=== PATIENT | male | born 1980 | race Caucasian/White ===

== ENCOUNTER 2017-09-12 13:35 | Emergency (ER) | payer OTHER ==
[2017-09-12] MEDS ORDERED: KETAMINE HCL INJ 500 MG/10 ML VIAL ONE (14:07)
[2017-09-12] MEDS ORDERED: DIAZEPAM INJ 10 MG/2 ML DISP.SYRIN IV ONE (14:11)
[2017-09-12] MEDS: NORMAL SALINE 1000 ML 1,000 ML IV PRN ×2 (14:17→15:02)
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
[2017-09-12 14:49] LABS: ABSOLUTE LYMPHOCYTES (AUTO) 1.1 10^3/uL (0.5-4.7); ABSOLUTE MONOCYTES (AUTO) 0.5 10^3/uL (0.1-1.4); ABSOLUTE NEUT (AUTO) 3.4 10^3/uL (1.7-8.2); BASOPHILS % (AUTO) 0.9 % (0-2); EOSINOPHILS % (AUTO) 0.4 % (0-6); HEMATOCRIT 40.3 % (37.9-51.0); HEMOGLOBIN 13.7 g/dL (13.5-17.0); MEAN CORPUSCULAR HEMOGLOBIN 31.4 pg (27.0-33.4); MEAN CORPUSCULAR HGB CONC 33.9 g/dL (32.0-36.0); MEAN CORPUSCULAR VOLUME 93 fl (80-97); MONOCYTES % (AUTO) 10.1 % (3-13); PLATELET COUNT 256 10^3/uL (150-450); RED BLOOD COUNT 4.36 10^6/uL (4.35-5.55); RED CELL DISTRIBUTION WIDTH 13.2 % (11.5-14.0); SEGMENTED NEUTROPHILS % (AUTO) 66.6 % (42-78); TOTAL CELLS COUNTED % (AUTO) 100 %; WHITE BLOOD COUNT 5.1 10^3/uL (4.0-10.5)
[2017-09-12 14:58] LABS: ALANINE AMINOTRANSFERASE 27 U/L (21-72); ALBUMIN 4.2 g/dL (3.5-5.0); ALKALINE PHOSPHATASE 70 U/L (38-126); ANION GAP 15 (5-19); ASPARTATE AMINO TRANSFERASE 19 U/L (17-59); BILIRUBIN,DIRECT 0.2 mg/dL (0.0-0.4); BILIRUBIN,TOTAL 0.9 mg/dL (0.2-1.3); BLOOD UREA NITROGEN 16 mg/dL (7-20); CALCIUM 9.4 mg/dL (8.4-10.2); CARBON DIOXIDE 22 mmol/L (22-30); CHLORIDE 98 mmol/L (98-107); CREATINE KINASE 231 U/L (55-170); POTASSIUM 4.7 mmol/L (3.6-5.0); SODIUM 135.2 mmol/L (137-145); TOTAL PROTEIN 6.1 g/dL (6.3-8.2)
[2017-09-12 14:59] LABS: ACETAMINOPHEN < 10 ug/mL (10-30); ALCOHOL < 10 mg/dL (NONE DETECTED); SALICYLATE < 1.0 mg/dL (2.0-20.0)
[2017-09-12 15:05] LABS: GLUCOSE 463 mg/dL (75-110)
--- NOTE | 2017-09-12 15:10 | EKG REPORT ---
SEVERITY:- BORDERLINE ECG - SINUS TACHYCARDIA PROBABLE LEFT ATRIAL ABNORMALITY : Confirmed by: Milan Lutz MD 12-Sep-2017 15:09:42
[2017-09-12 16:09] LABS: VENOUS BLOOD BASE EXCESS -1.8 mmol/L; VENOUS BLOOD HCO3 23.1 mmol/L (20-32); VENOUS BLOOD PCO2 39.9 mmHg (35-63); VENOUS BLOOD PH 7.38 (7.30-7.42)
[2017-09-12] MEDS ORDERED: ZIPRASIDONE MESYLATE INJ/PF 20 MG SDV IM ONE (16:14)
[2017-09-12 17:46] LABS: APPEARANCE,URINE CLEAR; BILIRUBIN,URINE NEGATIVE (NEGATIVE); COLOR,URINE YELLOW; GLUCOSE, URINE >=500 mg/dL (NEGATIVE); KETONES,URINE 20 mg/dL (NEGATIVE); LEUKOCYTE ESTERASE,URINE NEGATIVE (NEGATIVE); NITRITE,URINE NEGATIVE (NEGATIVE); PROTEIN,URINE NEGATIVE (NEGATIVE); URINE SPECIFIC GRAVITY 1.025
[2017-09-12 18:01] LABS: URINE AMPHETAMINES SCREEN UNCONFIRMED POSITIVE; URINE BARBITURATES SCREEN NEGATIVE; URINE BENZODIAZEPINES SCREEN UNCONFIRMED POSITIVE; URINE COCAINE SCREEN NEGATIVE; URINE MARIJUANA (THC) SCREEN NEGATIVE; URINE METHADONE SCREEN NEGATIVE; URINE PHENCYCLIDINE SCREEN NEGATIVE
[2017-09-12] MEDS ORDERED: DIAZEPAM INJ 10 MG/2 ML DISP.SYRIN IM PRN (22:25)
[2017-09-12] MEDS ORDERED: CETIRIZINE 10 MG TABLET PO ONE (22:53)
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
--- NOTE | 2017-09-13 09:19 | ER Document Report ---
Doctor's Note Notes: 09/13/17 09:18 Patient was seen and examined during psychiatric rounds this morning. Yesterday patient was acting erratic and disclosing paranoid delusions revolving around [place] and the missile launches upon arrival to [facility] ED. Originally patient refused to provide medical staff urine for urinalysis because the JEFF and classification issues. During evaluation patient did not present as under psychosis and only mentioned [place] towards the end of evaluation explaining possible impact areas are where he was actually deployed. His glucose was managed last night and improved significantly from 400 to 200. 09/13/17 10:27 After discussion with patient this morning, he feels and looks absolutely different. Patient is very cooperative, patient is very calm and regretful. Patient is very sorry about the anxiety reaction that he had yesterday. Patient would like to follow-up with his outpatient primary care provider as well as he is in treatment psychiatrist. Patient is willing to go back home and to apologize to his about anxiety reaction as well as to his children. Patient is cooperative, denies any homicidal or whole or suicidal ideations. Will get in contact with his and make sure that she is okay with him going home in the improved mental state. 09/13/17 11:51 Behavioral health were able to contact his . She is aware the patient is coming back. It also appears that they are having a civil dispute that has been going on for multiple months. Patient did not make any threats to kill his or his children yesterday and denies them today as well and does not have any future plans for them as well. Patient denies any suicidal homicidal ideations. Patient is very cooperative and does not appear to be manipulative. Patient will see his psychiatrist early next week.
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
[2017-09-13 12:07] VITALS: BP 136/78
== END 2017-09-13 12:06 | disposition home or self-care (01) ==
LOC: ER 13:35
DX: F41.9 Anxiety disorder, unspecified (principal); F91.9 Conduct disorder, unspecified; E10.65 Type 1 diabetes mellitus with hyperglycemia; Z96.41 Presence of insulin pump (external) (internal); Z79.4 Long term (current) use of insulin; Z88.2 Allergy status to sulfonamides; Z60.9 Problem related to social environment, unspecified
CPT/HCPCS: 93005; 99285; 96372; 96361; 96374; 36415; 82962; 80307 ×4; 82550; 85025; 80053; 81001; 82803; 93010; J3360; J3486; J7030

== ENCOUNTER 2017-09-25 20:55 | Emergency (ER) | payer OTHER ==
[2017-09-25] MEDS ORDERED: ACETAMINOPHEN 325 MG TABLET PO ONE (21:05)
[2017-09-25 21:15] VITALS: BP 125/90
[2017-09-25] MEDS ORDERED: CARISOPRODOL 350 MG TABLET PO ONE (22:04)
--- NOTE | 2017-09-25 22:09 | ER Document Report ---
ED Extremity Problem, Upper - General Mode of Arrival: Medic Information source: Patient TRAVEL OUTSIDE OF THE U.S. IN LAST 30 DAYS: No <ANGELITA DOYLE - Last Filed: 09/25/17 23:21> <DARNELL VASQUEZ - Last Filed: 09/26/17 01:02> - General Chief Complaint: Shoulder Pain Stated Complaint: SHOULDER PAIN Time Seen by Provider: 09/25/17 22:04 Notes: 37 y.o male with a PMHx of fusion to C4-C6 presents to the ED via EMS with intermittent RT shoulder pain for the past 2-3 weeks. Pt reports that today he was lying flat on his back and used his arms to stand up very fast and was "immediately on the ground in pain" to his arm. Pt reports tingling to his arm and pain radiating to elbow and to his 4th and 5th fingers. 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 He reports the pain changes with the position of his neck. He reports taking about 600mg of Ibuprofen after calling EMS around 1430 this afternoon and is without relief. (ANGELITA DOYLE) - Related Data Allergies/Adverse Reactions: Sulfa (Sulfonamide Antibiotics) Allergy (Verified 09/25/17 20:58) Past Medical History - General Information source: Patient - Social History Family History: Reviewed & Not Pertinent - Past Medical History Cardiac Medical History: Denies: Hx Coronary Artery Disease, Hx Heart Attack, Hx Hypertension Pulmonary Medical History: Denies: Hx Asthma, Hx Bronchitis, Hx COPD, Hx Pneumonia Neurological Medical History: Denies: Hx Cerebrovascular Accident, Hx Seizures Endocrine Medical History: Reports: Hx Diabetes Mellitus Type 1, Hx Diabetes Mellitus Type 2 Renal/ Medical History: Denies: Hx Peritoneal Dialysis GI Medical History: Denies: Hx Gastritis, Hx Gastroesophageal Reflux Disease Musculoskeltal Medical History: Denies Hx Arthritis Psychiatric Medical History: Reports: Hx Anxiety, Hx Depression, Hx Post Traumatic Stress Disorder Past Surgical History: Reports: Hx Orthopedic Surgery - Disc fusion. - Immunizations Hx Diphtheria, Pertussis, Tetanus Vaccination: Yes <ANGELITA DOYLE - Last Filed: 09/25/17 23:21> - General Information source: Patient - Social History Smoking Status: Unknown if Ever Smoked Family History: Reviewed & Not Pertinent <DARNELL VASQUEZ - Last Filed: 09/26/17 01:02> Review of Systems - Review of Systems Constitutional: No symptoms reported EENT: No symptoms reported Cardiovascular: No symptoms reported Respiratory: No symptoms reported Gastrointestinal: No symptoms reported Genitourinary: No symptoms reported Male Genitourinary: No symptoms reported Musculoskeletal: See HPI, Other - RT shoulder and arm pain Skin: No symptoms reported Hematologic/Lymphatic: No symptoms reported Neurological/Psychological: Tingling - RUE -: Yes All other systems reviewed and negative <ANGELITA DOYLE - Last Filed: 09/25/17 23:21> Physical Exam <ANGELITA DOYLE - Last Filed: 09/25/17 23:21> <DARNELL VASQUEZ - Last Filed: 09/26/17 01:02> - Vital signs Vitals: Temp Pulse Resp BP Pulse Ox 97.9 F 122 H 16 125/90 H 98 09/25/17 21:12 09/25/17 21:12 09/25/17 21:12 09/25/17 21:12 09/25/17 21:12 - Notes Notes: PHYSICal EXAM General: Alert. Uncomfortable. HEENT: Normocephalic. Atraumatic. PERRLA. Extraocular movements intact. Oropharynx clear. Neck: Supple. Lungs: Clear to auscultation bilaterally, no wheezes, rales, or rhonchi. No respiratory distress. Heart: Regular rate and rhythm. No murmurs, gallops, or rubs. Abdominal: Normal Inspection. No distension. Extremities: Moves all four extremities. Tender to RT medial scapula and RT latissimus. Tender to supraspinatuous. Neurological: Cranial nerves II-XII grossly intact bilaterally. Normal cognition. AAOx4. Normal speech. Psychological: Normal affect. Normal Mood. Skin: Warm. Dry. Normal color. (ANGELITA DOYLE) Course <ANGELITA DOYLE - Last Filed: 09/25/17 23:21> - Diagnostic Test Radiology reviewed: Reports reviewed <DARNELL VASQUEZ - Last Filed: 09/26/17 01:02> - Re-evaluation Re-evalutation: 09/25 Patient is a 37-year-old male who comes in complaining of right shoulder pain. He has full range of motion of the arm. He is tender over his supraspinatus, medial scapula. No neck pain or tenderness to palpation. No acute findings on x-rays. Patient is feeling better after medications. He will be given a sling and is to follow-up with orthopedics. Return if any weakness or paresthesias. Understands and agrees with plan. Stable for discharge. Grateful for care. ( DARNELL VASQUEZ) - Vital Signs Vital signs: Temp Pulse Resp BP Pulse Ox 97.9 F 122 H 16 125/90 H 98 09/25/17 21:12 09/25/17 21:12 09/25/17 21:12 09/25/17 21:12 09/25/17 21:12 Procedures - Immobilization Shoulder Pre-Proc Neuro Vasc Exam: Normal Immobilizer type: Sling Performed by: Provider Post-Proc Neuro Vasc Exam: Normal <DARNELL VASQUEZ - Last Filed: 09/26/17 01:02> Discharge <ANGELITA DOYLE - Last Filed: 09/25/17 23:21> <DARNELL VASQUEZ - Last Filed: 09/26/17 01:02> - Discharge Clinical Impression: Shoulder girdle syndrome Condition: Stable Disposition: HOME, SELF-CARE Instructions: Exercise Program for the Shoulder ([facility]), Shoulder Injury ([facility]) Additional Instructions: Avoid any activities that cause more pain in your shoulder. Prescriptions: Carisoprodol [Soma] 350 mg PO DAILYP PRN #10 tablet PRN Reason: Hydrocodone/Acetaminophen [[place] 5-325 mg Tablet] 1 tab PO BIDP PRN #10 tablet PRN Reason: Referrals: SHIRLEY ORTIZ MD [ACTIVE STAFF] - Follow up in 3-5 days Scribe Attestation: 09/26/17 01:02 I personally performed the services described in the documentation, reviewed and edited the documentation which was dictated to the scribe in my presence, and it accurately records my words and actions. (DARNELL VASQUEZ) Scribe Documentation - Scribe Written by Sheilaibe:: Mirela Paredes 09/25/[id number] acting as scribe for :: Kirti <ANGELITA DOYLE - Last Filed: 09/25/17 23:21>
--- NOTE | 2017-09-25 22:31 | RADIOLOGY REPORT (SQ) ---
EXAM DESCRIPTION: CHEST 2 VIEWS COMPLETED DATE/TIME: 09/25/2017 10:22 pm REASON FOR STUDY: injury, pain COMPARISON: 01/30/2011 EXAM PARAMETERS: NUMBER OF VIEWS: two views TECHNIQUE: Digital Frontal and Lateral radiographic views of the chest acquired. RADIATION DOSE: NA LIMITATIONS: none FINDINGS: LUNGS AND PLEURA: No opacities, masses or pneumothorax. No pleural effusion. MEDIASTINUM AND HILAR STRUCTURES: No masses or contour abnormalities. HEART AND VASCULAR STRUCTURES: Heart normal size. No evidence for failure. BONES: No acute findings. HARDWARE: None in the chest. OTHER: No other significant finding. IMPRESSION: NO ACUTE RADIOGRAPHIC FINDING IN THE CHEST. TECHNICAL DOCUMENTATION: JOB ID: [id number] [employer]- All Rights Reserved Reading location - IP/workstation name: [email or web address]
--- NOTE | 2017-09-25 22:33 | RADIOLOGY REPORT (SQ) ---
EXAM DESCRIPTION: SHOULDER RIGHT 2 OR MORE VIEWS COMPLETED DATE/TIME: 09/25/2017 10:27 pm REASON FOR STUDY: injury, pain COMPARISON: None. NUMBER OF VIEWS: Three views. TECHNIQUE: Internal rotation, external rotation, and Y view images acquired of the right shoulder. LIMITATIONS: None. FINDINGS: MINERALIZATION: Normal. BONES: No acute fracture or dislocation. No worrisome bone lesions. JOINTS: No dislocation. VISUALIZED LUNGS AND RIBS: No pneumothorax. No rib fracture. SOFT TISSUES: No radiopaque foreign body. OTHER: No other significant finding. IMPRESSION: NEGATIVE STUDY OF THE RIGHT SHOULDER. NO RADIOGRAPHIC EVIDENCE OF ACUTE INJURY. TECHNICAL DOCUMENTATION: JOB ID: [id number] [employer]- All Rights Reserved Reading location - IP/workstation name: [email or web address]
[2017-09-25] MEDS ORDERED: HYDROCODONE/ACETAMINOPHEN 5-325 MG (6 TAB/ER DISP) PO PRN (23:04)
== END 2017-09-25 23:39 | disposition home or self-care (01) ==
LOC: ER 20:55
DX: M54.12 Radiculopathy, cervical region (principal); M25.511 Pain in right shoulder; R20.2 Paresthesia of skin; Z98.1 Arthrodesis status; Z88.2 Allergy status to sulfonamides
CPT/HCPCS: 99284; 71046; 73030; J3490

== ENCOUNTER 2018-03-15 08:03 | Emergency (ER) | payer OTHER ==
--- NOTE | 2018-03-15 09:04 | ER Document Report ---
ED Extremity Problem, Upper - General Chief Complaint: Shoulder Pain Stated Complaint: SHOULDER PAIN Time Seen by Provider: 03/15/18 08:43 Notes: 37-year-old male with a history of chronic neck and shoulder pain presents to the ER complaining of right shoulder pain. Patient stated this all began about 3 or 4 months ago when he had a similar episode. He had an MRI of the shoulder which was negative they subsequently get an MRI of his neck. He is cared for by an orthopedist in [place] at the [place]. The patient denies any extremity weakness he has chronic numbness of the fourth and fifth digits on the right hand. This is a something he has had all along. Patient stated this morning he went to stretch and he felt a pop around his neck and shoulder and stated the pain is back no new numbness. No new weakness. Patient denies any chest pain or shortness of breath. TRAVEL OUTSIDE OF THE [place] IN LAST 30 DAYS: No - Related Data Allergies/Adverse Reactions: Sulfa (Sulfonamide Antibiotics) Allergy (Verified 03/15/18 08:05) Past Medical History - Social History Smoking Status: Current Every Day Smoker Family History: Reviewed & Not Pertinent - Past Medical History Cardiac Medical History: Denies: Hx Coronary Artery Disease, Hx Heart Attack, Hx Hypertension Pulmonary Medical History: Denies: Hx Asthma, Hx Bronchitis, Hx COPD, Hx Pneumonia Neurological Medical History: Denies: Hx Cerebrovascular Accident, Hx Seizures Endocrine Medical History: Reports: Hx Diabetes Mellitus Type 1, Hx Diabetes Mellitus Type 2 Renal/ Medical History: Denies: Hx Peritoneal Dialysis GI Medical History: Denies: Hx Gastritis, Hx Gastroesophageal Reflux Disease Musculoskeletal Medical History: Denies Hx Arthritis Psychiatric Medical History: Reports: Hx Anxiety, Hx Depression, Hx Post Traumatic Stress Disorder Past Surgical History: Reports: Hx Orthopedic Surgery - Disc fusion. - Immunizations Hx Diphtheria, Pertussis, Tetanus Vaccination: Yes Review of Systems - Review of Systems Constitutional: denies: Chills, Fever Cardiovascular: denies: Chest pain, Dyspnea, Edema Gastrointestinal: denies: Nausea, Vomiting Musculoskeletal: Joint pain -: Yes All other systems reviewed and negative Physical Exam - Vital signs Vitals: Temp Pulse Resp BP Pulse Ox 97.3 F 97 20 150/101 H 97 03/15/18 08:12 03/15/18 08:12 03/15/18 08:12 03/15/18 08:12 03/15/18 08:12 - Notes Notes: GENERAL_APPEARANCE: well_nourished, alert, cooperative, patient appears uncomfortable VITALS: reviewed, see vital signs table. HEAD: no_swelling\tenderness on the head. EYES: PERRL, EOMI, conjunctiva_clear. NOSE: no_nasal_discharge. MOUTH: (-)decreased moisture. THROAT: no_tonsilar_inflammation, no_airway_obstruction. no_lymphadenopathy NECK: supple, no_neck_tenderness, (-)thyromegaly. BACK: no_back_tenderness. EXTREMITIES: good pulses in all_extremities, planes of pain diffuse right shoulder no limitations to range of motion no crepitus, strong radial and ulnar pulses distal no numbness or tingling except chronic ulnar distribution on right hand, no_edema. SKIN: warm, dry, good_color, no_rash. MENTAL_STATUS: speech_clear, oriented_X_3, normal_affect, responds_ appropriately to questions. NEURO: Neg Motor or Sensory Deficits on exam, CN 2-12 intact, DTR 2+ symmetric x 4, No cerbellar signs Course - Re-evaluation Re-evalutation: 03/15/18 09:00 Patient has history of chronic neck and shoulder pain. He has had similar MRIs for the same. He is been seen here for the same he has not had any narcotics for pain prescribe since September. I will give him a short course of [place] and steroids and have him follow-up with his physicians. He did not want a repeat x -ray stating this is the exact same thing he has been having he has had x-rays and MRIs already. - Vital Signs Vital signs: Temp Pulse Resp BP Pulse Ox 97.3 F 97 20 150/101 H 97 03/15/18 08:12 03/15/18 08:12 03/15/18 08:12 03/15/18 08:12 03/15/18 08:12 Discharge - Discharge Clinical Impression: Shoulder pain Qualifiers: Chronicity: acute Laterality: right Qualified Code(s): M25.511 - Pain in right shoulder Condition: Good Disposition: HOME, SELF-CARE Instructions: Shoulder Injury ([facility]), Radiculopathy ([facility]) Additional Instructions: His follow-up with [facility] who [facility] Prescriptions: Carisoprodol [Soma 350 Mg Tablet] 350 mg PO Q8H PRN #20 tablet PRN Reason: pain Hydrocodone/Acetaminophen [[place] 5-325 mg Tablet] 1 tab PO Q6H PRN #20 tablet PRN Reason: Pain Scale Of 5 Prednisone [Deltasone 20 mg Tablet] 60 mg PO DAILY #15 tablet
[2018-03-15 09:40] VITALS: BP 138/81
[2018-03-15] MEDS ORDERED: KETOROLAC TROMETHAMINE 60 MG/2 ML SDV IM ONE (09:51)
== END 2018-03-15 10:12 | disposition home or self-care (01) ==
LOC: ER 08:03
DX: M25.511 Pain in right shoulder (principal); M54.2 Cervicalgia; G89.29 Other chronic pain; F17.200 Nicotine dependence, unspecified, uncomplicated; E11.9 Type 2 diabetes mellitus without complications; Z88.2 Allergy status to sulfonamides
CPT/HCPCS: 99283; 96372; J1885